=== PATIENT | female | born 1975 | race Asian ===

== ENCOUNTER 2021-02-27 19:03 | Emergency (ER) | payer MEDICAID, OTHER ==
[~2021-02-27] VITALS: Ht 165.1 cm; Wt 81.8 kg
[2021-02-27 19:29] VITALS: BP 129/60
== END 2021-02-27 20:26 | disposition home or self-care (01) ==
LOC: EMS 19:06
DX: L30.9 Dermatitis, unspecified (principal)
CPT/HCPCS: 99282; 99283

== ENCOUNTER 2021-03-01 22:02 | Emergency (ER) | payer MEDICAID ==
[~2021-03-01] VITALS: Ht 165.1 cm; Wt 81.8 kg
[2021-03-01 22:35] VITALS: BP 121/52
== END 2021-03-02 00:45 | disposition left against medical advice (07) ==
LOC: EMS 22:02
DX: S91.312A Laceration without foreign body, left foot, initial encounter (principal); Z88.0 Allergy status to penicillin; W26.8XXA Contact with other sharp object(s), not elsewhere classified, initial encounter; Y93.89 Activity, other specified; Y92.89 Other specified places as the place of occurrence of the external cause; Y99.8 Other external cause status
CPT/HCPCS: 99283; Z7502

== ENCOUNTER 2021-03-17 21:26 | Emergency (ER) | payer MEDICAID ==
[~2021-03-17] VITALS: Ht 165.1 cm; Wt 81.8 kg
[2021-03-17 22:09] VITALS: BP 118/72
== END 2021-03-18 01:15 | disposition home or self-care (01) ==
LOC: EMS 21:33
DX: S52.572A Other intraarticular fracture of lower end of left radius, initial encounter for closed fracture (principal); F31.9 Bipolar disorder, unspecified; Z88.0 Allergy status to penicillin; W19.XXXA Unspecified fall, initial encounter; Y93.89 Activity, other specified; Y92.89 Other specified places as the place of occurrence of the external cause; Y99.8 Other external cause status
CPT/HCPCS: 99283

== ENCOUNTER 2021-03-26 19:05 | Emergency (ER) | payer MEDICAID | END 2021-03-26 20:36 | disposition left against medical advice (07) | LOC: EMS 19:27 | DX: L30.9 Dermatitis, unspecified (principal); F31.9 Bipolar disorder, unspecified; Z59.0 Homelessness; Z88.0 Allergy status to penicillin | CPT/HCPCS: 99283 ==

== ENCOUNTER 2021-04-03 21:47 | Emergency (ER) | payer MEDICAID ==
[~2021-04-03] VITALS: Ht 165.1 cm; Wt 81.0 kg
[2021-04-04 00:58] VITALS: BP 135/80
== END 2021-04-04 02:58 | disposition home or self-care (01) ==
LOC: EMS 21:47
DX: M25.532 Pain in left wrist (principal); Z59.0 Homelessness; Z76.5 Malingerer [conscious simulation]; F31.9 Bipolar disorder, unspecified; Z88.0 Allergy status to penicillin
CPT/HCPCS: 99283; Z7502

== ENCOUNTER 2021-06-07 18:32 | Emergency (ER) | payer MEDICAID ==
[~2021-06-07] VITALS: Ht 165.1 cm; Wt 81.8 kg
[2021-06-07 20:34] VITALS: BP 124/82
== END 2021-06-07 21:38 | disposition home or self-care (01) ==
LOC: EMS 18:32
DX: F31.9 Bipolar disorder, unspecified (principal); Z88.0 Allergy status to penicillin
CPT/HCPCS: 99285; Z7502

== ENCOUNTER 2022-07-29 22:27 | Emergency (ER) | payer MEDICAID, OTHER ==
[~2022-07-29] VITALS: Ht 165.1 cm; Wt 81.0 kg
[2022-07-29 22:52] VITALS: BP 118/78
== END 2022-07-30 03:25 | disposition left against medical advice (07) ==
LOC: EMS 22:28
DX: Z53.21 Procedure and treatment not carried out due to patient leaving prior to being seen by health care provider (principal)